=== PATIENT | male | born 1980 | race Caucasian/White ===

== ENCOUNTER 2021-10-14 10:19 | Emergency (ER) | payer MEDICAID ==
[~2021-10-14] VITALS: Ht 182.9 cm; Wt 175.0 kg
[2021-10-14 10:27] VITALS: BP 177/123
[2021-10-14 11:23] LABS: EOSINOPHILS % 2.4 % (0.0-5.0); HEMOGLOBIN. 13.4 g/dL (14.0-18.0); LYMPHOCYTES % 23.1 % (20.0-50.0); MEAN CORPUSCULAR HEMOGLOBIN 25.1 pg (28.0-32.0); MEAN CORPUSCULAR VOLUME 76.6 fL (80.0-94.0); MEAN PLATELET VOLUME 7.4 fl (7.4-10.4); MONOCYTES % 7.4 % (2.0-8.0); NEUTROPHILS % 66.1 % (40.0-76.0); PLATELET 415 x1000/uL (130-400); RED BLOOD CELL COUNT 5.35 mill/uL (4.7-6.1); RED CELL DISTRIBUTION WIDTH 15.3 % (11.6-14.6)
[2021-10-14 11:30] LABS: CHLORIDE 107 mEq/L (98-107)
== END 2021-10-14 12:14 | disposition home or self-care (01) ==
LOC: ER 10:19
DX: J02.9 Acute pharyngitis, unspecified (principal); Z91.030 Bee allergy status
CPT/HCPCS: 36415; 70360; 71045; 80053; 85025; 93005; 99285

== ENCOUNTER 2022-02-26 11:14 | Emergency (ER) | payer MEDICAID ==
[~2022-02-26] VITALS: Ht 180.3 cm; Wt 172.0 kg
[2022-02-26 11:19] VITALS: BP 190/87
[2022-02-26] MEDS ORDERED: IBUPROFEN 800MG TABLET PO ONE (12:30)
[2022-02-26] MEDS ORDERED: IBUPROFEN 800MG TABLET PO SCH (13:00)
[2022-02-26] MEDS ORDERED: HYDROCODONE/ACETAMINOPHEN 5/325MG TABLET PO ONE (13:00)
[2022-02-26] MEDS ORDERED: IBUP-2030 MT (13:57)
[2022-02-26] MEDS ORDERED: HYDR-4001 MT (13:57)
== END 2022-02-26 15:30 | disposition home or self-care (01) ==
LOC: ER 11:40
DX: S49.82XA Other specified injuries of left shoulder and upper arm, initial encounter (principal); E11.9 Type 2 diabetes mellitus without complications; I10 Essential (primary) hypertension; Z98.1 Arthrodesis status; Z91.030 Bee allergy status; X50.0XXA Overexertion from strenuous movement or load, initial encounter; Y93.89 Activity, other specified; Y92.013 Bedroom of single-family (private) house as the place of occurrence of the external cause
CPT/HCPCS: 29105; 73030; 99283

== ENCOUNTER 2024-02-01 17:48 | Emergency (ER) | payer MEDICAID ==
[~2024-02-01] VITALS: Ht 177.8 cm; Wt 137.0 kg
[~2024-02-01 17:48] MED LIST: HYDR-4001 MT; IBUP-2030 MT
[2024-02-01 18:02] VITALS: TEMP 98.3; O2SAT 96
[2024-02-01 19:57] LABS: BASOPHILS % 0.8 % (0.0-2.0); EOSINOPHILS % 2.6 % (0.0-5.0); HEMATOCRIT. 42.9 % (42.0-52.0); HEMOGLOBIN. 14.3 g/dL (14.0-18.0); MEAN CORPUSCULAR HGB CONC 33.3 g/dL (31.0-37.0); MEAN PLATELET VOLUME 8.3 fl (7.4-10.4); MONOCYTES % 6.5 % (2.0-8.0); NEUTROPHILS % 63.1 % (40.0-76.0); PLATELET 229 x1000/uL (130-400); RED CELL DISTRIBUTION WIDTH 16.4 % (11.6-14.6); WHITE BLOOD COUNT 8.6 x1000/uL (4.5-11.0)
[2024-02-01 20:03] LABS: CHLORIDE 104 mEq/L (98-107); POTASSIUM 3.8 mEq/L (3.5-5.1); SODIUM 137 mEq/L (136-145)
[2024-02-01 20:04] VITALS: BP 120/54; PULSE 63; RESP 20
[2024-02-01 20:04] LABS: CARBON DIOXIDE 24 mEq/L (21-32)
[2024-02-01 20:05] LABS: CALCIUM 9.1 mg/dL (8.7-10.4)
[2024-02-01 20:09] LABS: CREATININE 1.2 mg/dL (0.6-1.3); GLUCOSE 93 mg/dL (70-105); UREA NITROGEN BLOOD 16 mg/dL (9-23)
[2024-02-01 20:11] LABS: INR 0.9; PROTHROMBIN TIME 10.5 sec (9.6-11.0); TROPONIN I HIGH SENSITIVITY < 4 ng/L (3.0-53)
== END 2024-02-01 20:04 | disposition home or self-care (01) ==
LOC: ER 17:48
DX: I10 Essential (primary) hypertension (principal); R42 Dizziness and giddiness; E11.9 Type 2 diabetes mellitus without complications
CPT/HCPCS: 36415; 71045; 80048; 84484; 85025; 93005; 99285

== ENCOUNTER 2024-09-24 15:44 | Emergency (ER) | payer BC, MEDICAID ==
[~2024-09-24] VITALS: Ht 180.3 cm; Wt 150.0 kg
[2024-09-24 16:00] VITALS: O2SAT 97
[2024-09-24] MEDS: MORPHINE SULFATE 4 MG/ML INJ (FOR IV/IM USE) IM ONE (18:12)
[2024-09-24 18:54] LABS: CLARITY URINE CLEAR (CLEAR); COLOR URINE YELLOW (YELLOW); GLUCOSE URINE NEGATIVE (NEGATIVE); KETONES URINE NEGATIVE (NEGATIVE); LEUKOCYTE ESTERASE URINE NEGATIVE (NEGATIVE); NITRITE URINE NEGATIVE (NEGATIVE); OCCULT BLOOD URINE NEGATIVE (NEGATIVE); PH URINE 5.5 (4.5-8.0); PROTEIN URINE NEGATIVE (NEGATIVE); SPECIFIC GRAVITY URINE 1.024 (1.005-1.030); UROBILINOGEN URINE 0.2 E.U./dL (0.2-1.0)
[2024-09-24 20:07] LABS: BASOPHILS % 1.2 % (0.0-2.0); EOSINOPHILS % 2.4 % (0.0-5.0); HEMATOCRIT. 45.9 % (42.0-52.0); HEMOGLOBIN. 15.3 g/dL (14.0-18.0); LYMPHOCYTES % 28.7 % (20.0-50.0); MEAN CORPUSCULAR HEMOGLOBIN 28.7 pg (28.0-32.0); MEAN CORPUSCULAR HGB CONC 33.4 g/dL (31.0-37.0); MEAN CORPUSCULAR VOLUME 85.8 fL (80.0-94.0); MONOCYTES % 5.7 % (2.0-8.0); PLATELET 294 x1000/uL (130-400); RED BLOOD CELL COUNT 5.35 mill/uL (4.7-6.1); RED CELL DISTRIBUTION WIDTH 15.3 % (11.6-14.6); WHITE BLOOD COUNT 8.8 x1000/uL (4.5-11.0)
[2024-09-24 20:08] LABS: CARBON DIOXIDE 26 mEq/L (21-32); CHLORIDE 106 mEq/L (98-107); POTASSIUM 4.4 mEq/L (3.5-5.1); SODIUM 140 mEq/L (136-145)
[2024-09-24 20:09] LABS: CALCIUM 9.8 mg/dL (8.7-10.4)
[2024-09-24 20:13] LABS: CREATININE 1.3 mg/dL (0.6-1.3)
[2024-09-24 20:14] LABS: GLUCOSE 112 mg/dL (70-105); UREA NITROGEN BLOOD 16 mg/dL (9-23)
[2024-09-24 20:15] LABS: ALANINE AMINOTRANSFERASE 13 IU/L (10-49)
[2024-09-24 20:16] LABS: ALBUMIN 4.4 g/dL (3.2-4.8); ASPARTATE AMINOTRANSFERASE 19 IU/L (<34); BILIRUBIN TOTAL 0.4 mg/dL (0.1-1.0); PROTEIN TOTAL 7.8 g/dL (6.0-8.3)
[2024-09-24 20:28] LABS: BILIRUBIN DIRECT < 0.1 mg/dL (<=3.0)
[2024-09-24] MEDS ORDERED: IBUP-2028 MT (20:59)
[2024-09-24] MEDS ORDERED: LIDO700A15 TP (20:59)
[2024-09-24] MEDS ORDERED: HYDR-4001 MT (20:59)
[2024-09-24] MEDS ORDERED: METH-653 MT (20:59)
[2024-09-24] MEDS: KETOROLAC 30MG/ML VIAL IM ONE (21:13)
[2024-09-24 21:16] VITALS: BP 145/82; PULSE 77; RESP 20; TEMP 36.7; O2SAT 97
[2024-09-24] MEDS: METHOCARBAMOL 750MG TABLET PO SCH (21:16)
== END 2024-09-24 21:19 | disposition home or self-care (01) ==
LOC: ER 15:44
DX: R10.84 Generalized abdominal pain (principal); M54.50 Low back pain, unspecified; E66.9 Obesity, unspecified; I10 Essential (primary) hypertension; Z90.5 Acquired absence of kidney; Z91.030 Bee allergy status
CPT/HCPCS: 99285; 74176; 80076; 80048; 81003; 83690; 85025; 36415; 96372; J1885; J2270

== ENCOUNTER 2024-10-29 12:35 | Emergency (ER) | payer MEDICAID ==
[~2024-10-29] VITALS: Ht 182.9 cm; Wt 150.0 kg
[~2024-10-29 12:35] MED LIST changes: +IBUP-2028 MT; +LIDO700A15 TP; +METH-653 MT
[2024-10-29 12:47] VITALS: O2SAT 97
[2024-10-29 13:03] VITALS: TEMP 36.9; O2SAT 97
[2024-10-29 14:34] VITALS: BP 145/88; PULSE 81; RESP 20
[2024-10-29] MEDS: KETOROLAC 30MG/ML VIAL IM ONE (14:34)
[2024-10-29] MEDS: LIDOCAINE 5% PATCH TOP SCH (14:34)
[2024-10-29] MEDS ORDERED: IBUP-2030 MT (14:40)
[2024-10-29] MEDS ORDERED: LIDO700A30 TP (14:40)
== END 2024-10-29 14:49 | disposition home or self-care (01) ==
LOC: ER 12:35
DX: R07.81 Pleurodynia (principal); I10 Essential (primary) hypertension; Z79.899 Other long term (current) drug therapy; Z98.890 Other specified postprocedural states
CPT/HCPCS: 99283; 71045; 96372; J1885